=== PATIENT | male | born 1970 | race African-American/Black ===

== ENCOUNTER 2017-07-15 11:17 | Emergency (ER) | payer BC ==
[~2017-07-15] VITALS: Ht 167.6 cm; Wt 75.0 kg
[~2017-07-15 11:17] MED LIST: BACTRIM DS1 TAB OR; COMBIVIR OR; FLONASE0.05 %; SUSTIVA600 MG OR
[2017-07-15] MEDS ORDERED: MOTRIN400 MG PO (13:53)
[2017-07-15 14:20] VITALS: BP 135/77
== END 2017-07-15 14:28 | disposition home or self-care (01) | DRG 159 ==
LOC: ED 11:17
DX: M26.622 Arthralgia of left temporomandibular joint (principal)

== ENCOUNTER 2018-01-01 03:17 | Emergency (ER) | payer OTHER ==
[~2018-01-01] VITALS: Ht 167.6 cm; Wt 72.6 kg
[~2018-01-01 03:17] MED LIST changes: +MOTRIN400 MG PO
[2018-01-01] MEDS ORDERED: NAPROSYN500 MG PO (04:15)
[2018-01-01 04:20] VITALS: BP 135/80
== END 2018-01-01 04:24 | disposition home or self-care (01) | DRG 563 ==
LOC: ED 03:17
DX: S63.91XA Sprain of unspecified part of right wrist and hand, initial encounter (principal); S63.92XA Sprain of unspecified part of left wrist and hand, initial encounter; F17.290 Nicotine dependence, other tobacco product, uncomplicated; W31.89XA Contact with other specified machinery, initial encounter; Y93.89 Activity, other specified; Y92.89 Other specified places as the place of occurrence of the external cause; Y99.0 Civilian activity done for income or pay

== ENCOUNTER 2019-01-04 21:39 | Emergency (ER) | payer OTHER, BC ==
[~2019-01-04] VITALS: Ht 167.6 cm; Wt 71.0 kg
[~2019-01-04 21:39] MED LIST changes: +NAPROSYN500 MG PO
[2019-01-04 23:00] VITALS: BP 118/60
[2019-01-04] MEDS ORDERED: TRAMADOL HYDROC50 MG PO (23:59)
== END 2019-01-05 00:24 | disposition home or self-care (01) | DRG 605 ==
LOC: ED 21:39
DX: S60.221A Contusion of right hand, initial encounter (principal); W31.9XXA Contact with unspecified machinery, initial encounter; Y92.89 Other specified places as the place of occurrence of the external cause; Y99.0 Civilian activity done for income or pay

== ENCOUNTER 2020-12-17 22:37 | Emergency (ER) | payer BC ==
[~2020-12-17] VITALS: Ht 167.6 cm; Wt 73.0 kg
[~2020-12-17 22:37] MED LIST changes: +TRAMADOL HYDROC50 MG PO
[2020-12-18 01:01] LABS: HEMATOCRIT 42.1 % (39.0-50.0); HEMOGLOBIN 14.3 g/dl (14.0-18.0); IMMATURE GRANULOCYTES 0.6 % (0.0-5.0); MEAN CORPUSCULAR HGB 35.5 pG CALC (26.0-32.0); NEUT# 11.6 thou/uL (1.82-7.42); RED BLOOD COUNT 4.03 mill/uL (4.70-6.10); RED CELL DISTRI WIDTH 12.9 % (11.5-15.5)
[2020-12-18 01:09] LABS: ALBUMIN 4.7 g/dL (3.2-5.0); ALKALINE PHOSPHATASE 74 u/l (38-126); AMYLASE 80 u/l (30-110); BUN 18 mg/dL (9-20); BUN/CREATININE RATIO 13 (12-20 (CALC)); CARBON DIOXIDE 24 mmol/l (22-30); CHLORIDE 96 mmol/l (95-108); CREATININE 1.4 mg/dL (0.7-1.3); GFR 54 ML/MIN (>=60 (CALC)); GFR FOR AFR.AMER. > 60 ML/MIN (>=60 (CALC)); POTASSIUM 4.1 mmol/l (3.5-5.1)
[2020-12-18 01:11] LABS: MEAN CELL VOLUME 104.5 fL CALC (80.0-100.0)
[2020-12-18 01:17] LABS: MYOGLOBIN 64 ng/mL (0 - 121)
[2020-12-18 01:19] LABS: ANION GAP 15 (6-22 (CALC)); BILIRUBIN, TOTAL 0.6 mg/dL (0.0-1.4); SGOT/AST 42 u/l (17-59); SODIUM 131 mmol/l (137-146); TOTAL PROTEIN 8.8 g/dL (6.3-8.2)
[2020-12-18 03:10] LABS: URINE BILIRUBIN - DIPSTICK NEGATIVE (NEGATIVE); URINE BLOOD DIPSTICK SMALL (NEGATIVE); URINE COLOR YELLOW; URINE GLUCOSE - DIPSTICK NEGATIVE (NEGATIVE); URINE KETONE NEGATIVE (NEGATIVE); URINE PROTEIN - DIPSTICK 30 mg/dL (NEG-TRACE); URINE SPECIFIC GRAVITY 1.025; URINE UROBILINOGEN - DIPSTICK 0.2 E.U./dL (0.2)
[2020-12-18 03:13] LABS: URINE LEUK ESTERASE NEGATIVE (NEGATIVE); URINE NITRITE - DIPSTICK NEGATIVE (Negative)
[2020-12-18 03:15] LABS: URINE EPITHELIAL CELLS FEW EPI/hpf (0-FEW)
[2020-12-18 03:16] LABS: URINE BACTERIA FEW hpf; URINE MUCUS MODERATE hpf (NONE-FEW)
[2020-12-18] MEDS ORDERED: ONDANSETRON4 MG PO (05:51)
[2020-12-18] MEDS ORDERED: ZITHROMAX250 MG PO (05:51)
[2020-12-18] MEDS ORDERED: CEPHALEXIN500 MG PO (05:51)
[2020-12-18 06:00] VITALS: BP 96/58
== END 2020-12-18 06:00 | disposition home or self-care (01) | DRG 391 ==
LOC: ED 22:37
PROVIDERS: Emergency Medicine
DX: K52.9 Noninfective gastroenteritis and colitis, unspecified (principal); J18.9 Pneumonia, unspecified organism; N39.0 Urinary tract infection, site not specified; Z20.822 Contact with and (suspected) exposure to COVID-19
CPT/HCPCS: Q9967; S0164

== ENCOUNTER 2021-02-06 01:20 | Emergency (ER) | payer BC ==
[~2021-02-06] VITALS: Ht 167.6 cm; Wt 73.0 kg
[~2021-02-06 01:20] MED LIST changes: +CEPHALEXIN500 MG PO; +ONDANSETRON4 MG PO; +ZITHROMAX250 MG PO
[2021-02-06] MEDS ORDERED: TRAMADOL HCL50 MG PO (02:43)
[2021-02-06] MEDS ORDERED: STERAPRED DS10 MG PO (02:43)
[2021-02-06 03:02] VITALS: BP 120/78
== END 2021-02-06 03:12 | disposition home or self-care (01) | DRG 74 ==
LOC: ED 01:20
DX: M54.12 Radiculopathy, cervical region (principal)